=== PATIENT | female | born 1970 | race Asian ===

== ENCOUNTER 2018-07-16 09:35 | Inpatient (IN) | payer OTHER ==
[~2018-07-16] VITALS: Ht 152.4 cm; Wt 57.2 kg
[2018-07-16] MEDS ORDERED: IV NORMAL SALINE 1,000ML 1,000 ML IV SCH (09:56)
--- NOTE | 2018-07-16 10:03 | PHYS DOC ---
Past History Past Medical History: No Pertinent History Past Surgical History: No Surgical History Alcohol Use: Occasionally Drug Use: None Adult General Chief Complaint Chief Complaint: NAUSEA/VOMITING/DIARRHEA HPI HPI Patient is a 48 year old female who presents with complaint of dizziness. Patient states that she has been having frequent dizzy spells for approximately one week. Denies previous history of similar symptoms. States that she has been having these at different times of the day. States that she had her last episode this morning. [place] like she was going to pass out. Notes that she had chest pain associated with her episode this morning. Currently chest pain-free but states that she is having nausea and occasional shortness of breath. Denies any significant past medical history. States that she has been having menstrual periods up until 3 months ago. Expressed concern that she may be but has not taken a test at this time. Denies family history of heart attack. Has not taken any medications for symptoms. Review of Systems Review of Systems Constitutional: Denies fever or chills [] Eyes: Denies change in visual acuity, redness, or eye pain [] HENT: Denies nasal congestion or sore throat [] Respiratory: Denies cough or shortness of breath [] Cardiovascular: Chest pain, denies edema[] GI: Nausea, denies vomiting, abdominal pain, bloody stools or diarrhea [] : Denies dysuria or hematuria [] Musculoskeletal: Denies back pain or joint pain [] Integument: Denies rash or skin lesions [] Neurologic: Dizziness, lightheadedness, denies focal weakness or sensory changes [] All other systems were reviewed and found to be within normal limits, except as documented in this note. Allergies Allergies Allergies Coded Allergies Type Severity Reaction Last Updated Verified No Known Drug Allergies 07/16/18 No Physical Exam Physical Exam Constitutional: Well developed, well nourished, no acute distress, non-toxic appearance. [] HENT: Normocephalic, atraumatic, bilateral external ears normal, oropharynx moist, no oral exudates, nose normal. [] Eyes: PERRLA, EOMI, conjunctiva normal, no discharge. [] Neck: Normal range of motion, no tenderness, supple, no stridor. [] Cardiovascular:Heart rate regular rhythm, no murmur [] Lungs & Thorax: Bilateral breath sounds clear to auscultation [] Abdomen: Bowel sounds normal, soft, no tenderness, no masses, no pulsatile masses. [] Skin: Warm, dry, no erythema, no rash. [] Back: No tenderness, no CVA tenderness. [] Extremities: No tenderness, no cyanosis, no clubbing, ROM intact, no edema. [] Neurologic: Alert and oriented X 3, normal motor function, normal sensory function, no focal deficits noted. [] Current Patient Data Vital Signs Vital Signs Date Time Temp Pulse Resp B/P (MAP) Pulse Ox O2 Delivery O2 Flow Rate FiO2 07/16/18 09:41 98.3 57 18 98 Room Air Lab Results Laboratory Tests Test 07/16/18 10:10 07/16/18 10:15 Urine Collection Type Void Urine Color Yellow Urine Clarity Clear Urine pH 7.0 Urine Specific [place] 1.020 Urine Protein Neg Urine Glucose (UA) Neg mg/dL Urine Ketones (Stick) Neg mg/dL Urine Blood Neg Urine Nitrite Pos Urine Bilirubin Neg Urine Urobilinogen Dipstick 0.2 mg/dL Urine Leukocyte Esterase Neg Urine RBC Occ /HPF Urine WBC Occ /HPF Urine Squamous Epithelial Cells Few /LPF Urine Bacteria Few /HPF Urine Mucus Slight /LPF Urine Test Negative White Blood Count 3.7 x10^3/uL Red Blood Count 4.20 x10^6/uL Hemoglobin 12.7 g/dL Hematocrit 37.9 % Mean Corpuscular Volume 90 fL Mean Corpuscular Hemoglobin 30 pg Mean Corpuscular Hemoglobin Concent 34 g/dL Red Cell Distribution Width 14.0 % Platelet Count 228 x10^3/uL Neutrophils (%) (Auto) 62 % Lymphocytes (%) (Auto) 26 % Monocytes (%) (Auto) 10 % Eosinophils (%) (Auto) 1 % Basophils (%) (Auto) 1 % Neutrophils # (Auto) 2.3 x10^3uL Lymphocytes # (Auto) 1.0 x10^3/uL Monocytes # (Auto) 0.4 x10^3/uL Eosinophils # (Auto) 0.0 x10^3/uL Basophils # (Auto) 0.0 x10^3/uL Sodium Level 143 mmol/L Potassium Level 3.9 mmol/L Chloride Level 107 mmol/L Carbon Dioxide Level 30 mmol/L Anion Gap 6 Blood Urea Nitrogen 13 mg/dL Creatinine 0.7 mg/dL Estimated GFR (Cockcroft-Gault) 88.6 BUN/Creatinine Ratio 19 Glucose Level 86 mg/dL Calcium Level 8.9 mg/dL Magnesium Level 2.0 mg/dL Total Bilirubin 0.3 mg/dL Aspartate Amino Transf (AST/SGOT) 18 U/L Alanine Aminotransferase (ALT/SGPT) 26 U/L Alkaline Phosphatase 48 U/L Creatine Kinase 66 U/L Creatine Kinase MB (Mass) 0.5 ng/mL Creatine Kinase MB Relative Index 0.8 % Troponin I Quantitative < 0.017 ng/mL Total Protein 6.4 g/dL Albumin 3.3 g/dL Albumin/Globulin Ratio 1.1 Current Medications Medications (Trade) Dose Ordered Sig/Willie Route PRN Reason Start Time Stop Time Status Last Admin Dose Admin Aspirin (Children'S Aspirin) 324 mg 1X ONCE PO 07/16/18 10:15 07/16/18 10:16 DC 07/16/18 10:24 Sodium Chloride 1,000 ml @ 1,000 mls/hr Q1H IV 07/16/18 09:56 07/16/18 10:56 DC 07/16/18 10:22 EKG EKG Interpreted by me: Heart rate 59, sinus rhythm, normal intervals, normal axis, no acute ST/T-wave abnormalities present[] Radiology/Procedures Radiology/[place] [address] IMAGING REPORT Signed PATIENT: GARRETT TERRY ACCOUNT: [id number] : 1970 LOCATION: ER AGE: 48 SEX: F EXAM STATUS: REG ER ORD. PHYSICIAN: DARREN HORAN MD REASON: near syncope, chest pain PROCEDURE: PORTABLE CHEST 1V PORTABLE CHEST 1V Clinical indications: Near syncope. Chest pain. COMPARISON: None available. Findings: No acute lung infiltrate or pleural effusion or pulmonary edema or lung mass or pneumothorax is seen. The heart size, pulmonary vasculature, mediastinum and both tom are unremarkable. Impression: No acute radiographic abnormality is seen. Electronically signed by: Carmen Hunter MD (07/16/2018 11:04 AM) [facility] DICTATED AND SIGNED BY: CARMEN HUNTER MD DATE: 07/16/18 1104 CC: DARREN HORAN MD; PCP,UNKNOWN ~ [] Course & Med Decision Making Course & Med Decision Making Pertinent Labs and Imaging studies reviewed. (See chart for details) Patient was given aspirin and IV fluids in the emergency department. Initial lab work is negative. Given recurrent episodes of near syncope and an associated chest pain episode today, the patient is appropriate for admission for continued monitoring and rule out of myocardial infarction. I spoke with Dr. Cazares who accepted care of patient in hospital.[] Dragon Disclaimer Dragon Disclaimer This electronic medical record was generated, in whole or in part, using a voice recognition dictation system. Departure Departure: Impression: Primary Impression: Chest pain Additional Impression: Near syncope Disposition: ADMITTED INPATIENT Admitting Physician: Renetta Cazares Condition: STABLE Referrals: PCP,UNKNOWN (PCP) Problem Qualifiers Primary Impression: Chest pain Chest pain type: unspecified Qualified Codes: R07.9 - Chest pain, unspecified ADRREN HORAN MD July 16, 2018 10:03
[2018-07-16] MEDS ORDERED: ASPIRIN 81 MG TAB.CHEW PO ONE (10:15)
[2018-07-16 10:32] LABS: BASO % 1 % (0-3); EOS % 1 % (0-3); HEMATOCRIT 37.9 % (36.0-47.0); HEMOGLOBIN 12.7 g/dL (12.0-15.5); LYMPH % 26 % (24-48); MEAN CORPUSCULAR HEMOGLOBIN 30 pg (25-35); MEAN CORPUSCULAR HGB CONC 34 g/dL (31-37); MEAN CORPUSCULAR VOLUME 90 fL (79-100); MONO # 0.4 x10^3/uL (0.0-1.1); MONO % 10 % (0-9); NEUT # 2.3 x10^3uL (1.8-7.7); NEUT % 62 % (31-73); PLATELET COUNT 228 x10^3/uL (140-400); WHITE BLOOD COUNT 3.7 x10^3/uL (4.0-11.0)
[2018-07-16 10:41] LABS: U PREG PATIENT NEGATIVE (NEG)
[2018-07-16 10:48] LABS: BILIRUBIN,URINE NEG (NEG); CLARITY,URINE CLEAR; COLOR,URINE YELLOW; GLUCOSE,URINE NEG (NEG)
[2018-07-16 10:49] LABS: BACTERIA,URINE FEW /HPF (0-FEW); NITRITE,URINE POS (NEG); RBC,URINE OCC /HPF (0-2); SQUAMOUS EPITHELIAL CELL,UR FEW /LPF; UROBILINOGEN,URINE 0.2 mg/dL (0.2 mg/dL); WBC,URINE OCC /HPF (0-4)
[2018-07-16 11:03] LABS: ALBUMIN 3.3 g/dL (3.4-5.0); ALBUMIN/GLOBULIN RATIO 1.1 (1.0-1.7); CALCIUM 8.9 mg/dL (8.5-10.1); CREATININE 0.7 mg/dL (0.6-1.0); GFR 88.6; POTASSIUM 3.9 mmol/L (3.5-5.1); TOTAL BILIRUBIN 0.3 mg/dL (0.2-1.0); TOTAL PROTEIN 6.4 g/dL (6.4-8.2)
--- NOTE | 2018-07-16 11:07 | RAD ---
PORTABLE CHEST 1V Clinical indications: Near syncope. Chest pain. COMPARISON: None available. Findings: No acute lung infiltrate or pleural effusion or pulmonary edema or lung mass or pneumothorax is seen. The heart size, pulmonary vasculature, mediastinum and both tom are unremarkable. Impression: No acute radiographic abnormality is seen. Electronically signed by: Seferino Hunter MD (07/16/2018 11:04 AM) [facility]
[2018-07-16] MEDS: IV NORMAL SALINE 1,000ML 1,000 ML IV SCH ×2 (11:12→19:12)
[2018-07-16] MEDS ORDERED: ACETAMINOPHEN 325 MG TABLET PO PRN (11:15)
[2018-07-16] MEDS ORDERED: ONDANSETRON PF 4 MG/2 ML VIAL. IV PRN (11:15)
[2018-07-16 12:23] VITALS: BP 104/67
--- NOTE | 2018-07-16 13:56 | EKG ---
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
[2018-07-16 15:26] VITALS: BP 121/75
--- NOTE | 2018-07-16 16:41 | PDOC2 ---
CARDIAC CONSULT DATE OF CONSULT Date Of Consult DATE: 07/16/18 TIME: 16:07 REASON FOR CONSULT Reason for Consult Chest pain, near syncope REFERRING PHYSICIAN Referring Physician Dr. Allred SOURCE Source: Chart review, Patient HPI History of Present Illness This is a 48 yo female, with no significant medical history, who presented s econdary to intermittent dizziness and nausea/vomiting for the last week. This morning, was significantly more dizzy. [place] as is she could pass out. Had some mild tightness in her left chest. Patient and had concerns that she may be . No SOA, palpitations, diaphoresis, LE edema, or orthopnea. Also reports some intermittent burning with urination. No further chest pain since admission. Of note, is mildly bradycardic with HR near 50. Lowest HR 42. No pauses. Blood pressure also on low end. PAST MEDICAL HISTORY Cardiovascular: No pertinent hx Pulmonary: No pertinent hx GI: No pertinent hx Heme/Onc: No pertinent hx Hepatobiliary: No pertinent hx Psych: No pertinent hx Musculoskeletal: No pertinent hx Rheumatologic: No pertinent hx Infectious disease: No pertinent hx ENT: No pertinent hx Renal/: No pertinent hx Endocrine: No pertinent hx Dermatology: No pertinent hx PAST SURGICAL HISTORY Past Surgical History: FAMILY HISTORY Family History: Hypertension SOCIAL HISTORY Smoke: No ALCOHOL: none Drugs: None Lives: with Family CURRENT MEDICATIONS Current Medications Current Medications Aspirin (Children'S Aspirin) 324 mg 1X ONCE PO Last administered on 07/16/18at 10:24; Start 07/16/18 at 10:15; Stop 07/16/18 at 10:16; Status DC Sodium Chloride 1,000 ml @ 1,000 mls/hr Q1H IV Last administered on 07/16/18at 10:22; Start 07/16/18 at 09:56; Stop 07/16/18 at 10:56; Status DC Ondansetron HCl (Zofran) 4 mg PRN Q4HRS PRN IV NAUSEA/VOMITING; Start 07/16/18 at 11:15; Stop 07/17/18 at 11:14 Sodium Chloride 1,000 ml @ 125 mls/hr Q8H IV ; Start 07/16/18 at 11:12; Stop 07/17/18 at 11:11 Acetaminophen (Tylenol) 650 mg PRN Q4HRS PRN PO FEVER; Start 07/16/18 at 11:15; Stop 07/17/18 at 11:14 ALLERGIES Allergies: Coded Allergies: No Known Drug Allergies (Unverified , 07/16/18) ROS Review of Systems 14 point ROS conducted with pertinent positives noted above in HPI. PHYSICAL EXAM General: Alert, Oriented X3, Cooperative, No acute distress HEENT: Atraumatic Lungs: Clear to auscultation, Normal air movement Heart: Regular rate, Normal S1, Normal S2 Abdomen: Soft, No tenderness Extremities: No edema, Normal pulses Skin: No breakdown Neuro: Normal speech, Sensation intact Psych/Mental Status: Mental status NL, Mood NL MUSCULOSKELETAL: Osteoarthritic changes both hands VITALS Vital Signs Vital Signs Date Time Temp Pulse Resp B/P (MAP) Pulse Ox O2 Delivery O2 Flow Rate FiO2 07/16/18 15:26 98.3 50 16 121/75 (90) 99 Room Air LABS LABS Laboratory Tests Test 07/16/18 10:10 07/16/18 10:15 07/16/18 14:25 Urine Collection Type Void Urine Color Yellow Urine Clarity Clear Urine pH 7.0 Urine Specific [place] 1.020 Urine Protein Neg (NEG-TRACE) Urine Glucose (UA) Neg mg/dL (NEG) Urine Ketones (Stick) Neg mg/dL (NEG) Urine Blood Neg (NEG) Urine Nitrite Pos (NEG) Urine Bilirubin Neg (NEG) Urine Urobilinogen Dipstick 0.2 mg/dL (0.2 mg/dL) Urine Leukocyte Esterase Neg (NEG) Urine RBC Occ /HPF (0-2) Urine WBC Occ /HPF (0-4) Urine Squamous Epithelial Cells Few /LPF Urine Bacteria Few /HPF (0-FEW) Urine Mucus Slight /LPF Urine Test Negative (NEG) White Blood Count 3.7 x10^3/uL (4.0-11.0) Red Blood Count 4.20 x10^6/uL (3.50-5.40) Hemoglobin 12.7 g/dL (12.0-15.5) Hematocrit 37.9 % (36.0-47.0) Mean Corpuscular Volume 90 fL (79-100) Mean Corpuscular Hemoglobin 30 pg (25-35) Mean Corpuscular Hemoglobin Concent 34 g/dL (31-37) Red Cell Distribution Width 14.0 % (11.5-14.5) Platelet Count 228 x10^3/uL (140-400) Neutrophils (%) (Auto) 62 % (31-73) Lymphocytes (%) (Auto) 26 % (24-48) Monocytes (%) (Auto) 10 % (0-9) Eosinophils (%) (Auto) 1 % (0-3) Basophils (%) (Auto) 1 % (0-3) Neutrophils # (Auto) 2.3 x10^3uL (1.8-7.7) Lymphocytes # (Auto) 1.0 x10^3/uL (1.0-4.8) Monocytes # (Auto) 0.4 x10^3/uL (0.0-1.1) Eosinophils # (Auto) 0.0 x10^3/uL (0.0-0.7) Basophils # (Auto) 0.0 x10^3/uL (0.0-0.2) Sodium Level 143 mmol/L (136-145) Potassium Level 3.9 mmol/L (3.5-5.1) Chloride Level 107 mmol/L (98-107) Carbon Dioxide Level 30 mmol/L (21-32) Anion Gap 6 (6-14) Blood Urea Nitrogen 13 mg/dL (7-20) Creatinine 0.7 mg/dL (0.6-1.0) Estimated GFR (Cockcroft-Gault) 88.6 BUN/Creatinine Ratio 19 (6-20) Glucose Level 86 mg/dL (70-99) Calcium Level 8.9 mg/dL (8.5-10.1) Magnesium Level 2.0 mg/dL (1.8-2.4) Total Bilirubin 0.3 mg/dL (0.2-1.0) Aspartate Amino Transf (AST/SGOT) 18 U/L (15-37) Alanine Aminotransferase (ALT/SGPT) 26 U/L (14-59) Alkaline Phosphatase 48 U/L (46-116) Creatine Kinase 66 U/L (26-192) Creatine Kinase MB (Mass) 0.5 ng/mL (0.0-3.6) Creatine Kinase MB Relative Index 0.8 % (0-4) Troponin I Quantitative < 0.017 ng/mL (0-0.055) < 0.017 ng/mL (0-0.055) Total Protein 6.4 g/dL (6.4-8.2) Albumin 3.3 g/dL (3.4-5.0) Albumin/Globulin Ratio 1.1 (1.0-1.7) ASSESSMENT/PLAN Assessment/Plan 1. Dizziness. Blood pressure initially on low end, but improved with IVFs 2. Nausea/vomiting, intermittent last week. 3. Chest pain, atypical. AMI ruled out 4. Sinus bradycardia; lowest 42. No pauses. Appropriate chronotropic response. No carotid hypersensitivity 5. Dysuria Recommendations Echo to assess LV systolic function Lipid panel, TSH Avoid AV tiffany blocking agents Monitor rhythm overnight. Consider outpatient event monitor to r/o significant bradycardia/pauses ANNALISE HUGO APRN July 16, 2018 16:41
--- NOTE | 2018-07-16 18:55 | HP ---
ADMIT DATE: 07/16/2018 HISTORY OF PRESENT ILLNESS: The patient is a 48-year-old female patient, who came to the Emergency Room with a complaint of chest pain and near syncope. According to her has had intermittent episode of dizziness with nausea and vomiting for the last week and this morning was significantly more dizzy, felt as if she could pass out and some mild tightness in her left chest. The patient and had concerned that she may be . Denied any shortness of breath, palpitations, diaphoresis. She did also complain of intermittent burning with urination. Her said that also her blood pressure was low when he measured it at home had about 90/60. She has also bradycardia raising the concern that she might have episodes of high grade heart block. The patient was admitted and investigation showed that she was in sinus bradycardia with normal intervals, normal axis, and no acute ST-T changes. Her first set of cardiac enzymes showed troponin to be less than 0.017. The patient was admitted to do 2 more sets of cardiac enzyme, consult the degreasing solution reclaimer. Her urine was positive for nitrite, but negative for leukocyte esterase. There are no rbc's, no wbc's and very few bacteria; however, the patient was treated with IV antibiotic for presumably presumptive UTI and was admitted. PAST MEDICAL HISTORY: Essentially unremarkable. PAST SURGICAL HISTORY: Significant for . FAMILY HISTORY: Positive for hypertension. SOCIAL HISTORY: She is , has 1 son. She does not smoke, drink alcohol or use any recreational drugs. REVIEW OF SYSTEMS: As per history of present illness. ALLERGIES: She has no known drug allergies. MEDICATIONS: She is on no medication. PHYSICAL EXAMINATION: GENERAL: On arrival to the Emergency Room, she looked well and was clearly in no apparent respiratory distress. There was no pallor, jaundice, cyanosis, or thyromegaly. No jugular venous distension. No limb edema. VITAL SIGNS: Her heart rate was 57, blood pressure was 103/53, temperature was 98.3, respiratory rate was 18 and oxygen saturation was 98%. HEAD, EYES, EARS, NOSE, AND THROAT: Showed normocephalic, atraumatic. NECK: Supple. HEART: Showed normal first and second heart sounds with no gallop, rub or murmur. CHEST: Clear to auscultation. No crepitation or rhonchi. ABDOMEN: Distended, soft, nontender. No guarding rigidity, organomegaly. All hernial orifice intact. Bowel sounds normal. NEUROLOGIC: She is awake, alert, responding appropriately. All cranial nerves intact. EXTREMITIES: She moves extremities without difficulty. She ambulates without assistance or assistive devices. LABORATORY DATA: Showed a white cell count of 3700, hemoglobin 12.7, hematocrit 37.9, MCV 90 and platelet count 228,000. Serum sodium was 143, potassium 3.9, chloride 107, bicarbonate 30, anion gap of 6, BUN 13, creatinine 0.7, estimated GFR was 88 mL per minute. Her glucose was 86, calcium was 8.9, magnesium 2. Total bilirubin, AST, ALT, alkaline phosphatase were normal. Her first troponin was less than 0.017. Total protein was 6.4, albumin was 3.3. Her chest x-ray showed that no acute lung infiltrate, pleural effusion, pulmonary edema or lung mass or pneumothorax seen. The heart size, pulmonary vasculature, mediastinum and both tom are unremarkable. PLAN: The patient was admitted to do 2 more sets of cardiac enzyme, consult the cardiology team. We will also check her fasting lipid profile and decide on further management accordingly. REYNA MARIA MD DR: IRVING/shanita JOB#: [id number] / [id number]
[2018-07-16 19:36] VITALS: BP 112/69
[2018-07-16 22:12] VITALS: BP 112/71
[2018-07-17] MEDS: IV NORMAL SALINE 1,000ML 1,000 ML IV SCH (03:12)
[2018-07-17 05:22] VITALS: BP 104/62
[2018-07-17 06:34] LABS: BASO % 1 % (0-3); EOS # 0.1 x10^3/uL (0.0-0.7); EOS % 2 % (0-3); HEMATOCRIT 38.9 % (36.0-47.0); LYMPH # 1.2 x10^3/uL (1.0-4.8); LYMPH % 32 % (24-48); MEAN CORPUSCULAR HEMOGLOBIN 30 pg (25-35); MEAN CORPUSCULAR HGB CONC 34 g/dL (31-37); MEAN CORPUSCULAR VOLUME 91 fL (79-100); MONO # 0.3 x10^3/uL (0.0-1.1); MONO % 9 % (0-9); NEUT # 2.1 x10^3uL (1.8-7.7); NEUT % 57 % (31-73); PLATELET COUNT 221 x10^3/uL (140-400); RED BLOOD COUNT 4.29 x10^6/uL (3.50-5.40); RED CELL DISTRIBUTION WIDTH 14.1 % (11.5-14.5); WHITE BLOOD COUNT 3.7 x10^3/uL (4.0-11.0)
[2018-07-17 06:36] LABS: CALCIUM 8.8 mg/dL (8.5-10.1); CREATININE 0.5 mg/dL (0.6-1.0); GFR 130.6; POTASSIUM 3.8 mmol/L (3.5-5.1)
[2018-07-17 11:13] VITALS: BP 116/71
[2018-07-17] MEDS ORDERED: CEFD300C PO (13:28)
--- NOTE | 2018-07-17 14:26 | DS ---
DATE OF DISCHARGE: 07/17/2018 HOSPITAL COURSE: The patient is a 48-year-old female patient who came to the Emergency Room complaining of intermittent dizziness, nausea, vomiting. She was more dizzy on the admission morning, she could pass out. Her blood pressure was low, according to her . She also has bradycardia with heart rate down to 42. She was evaluated in the Emergency Room, has had 3 sets of cardiac enzyme, has ruled out myocardial infarction. She had some urinalysis showed that she was positive for nitrites and there are few bacteria and she was treated with IV ceftriaxone; however, throughout her hospital stay her heart rate seems to be on the lower side. She has sinus bradycardia with heart rate in the 50s. Her blood pressure is stable, on the lower side around 100-110 mmHg. The patient is asymptomatic, has no further episodes of syncope or dizziness and a decision was made to discharge her home with a plan to do an outpatient heart monitoring. The patient and her were encouraged to make an appointment with her primary care physician at [facility] so that she can be referred to our drum barker operator for further evaluation and treatment. PHYSICAL EXAMINATION: GENERAL: When I saw her today, she looked well and was clearly in no apparent respiratory distress. No pallor, jaundice, cyanosis, or thyromegaly. No jugular venous distension. No lower limb edema. VITAL SIGNS: Her heart rate was 51, blood pressure was 116/71, temperature was 98.1, respiratory rate was 20 and oxygen saturation was 98%. HEENT: Examination of the head, eyes, ears, nose and throat showed normocephalic, atraumatic. NECK: Supple. HEART: Showed normal first and second heart sounds. No gallop, rub or murmur. CHEST: Clear to auscultation. No crepitation or rhonchi. ABDOMEN: Distended, soft, nontender. No guarding or rigidity. No organomegaly. Her hernial orifices are intact. Bowel sounds normal. NEUROLOGIC: She was awake, alert, responding appropriately. All her cranial nerves are intact. EXTREMITIES: She moves extremities without difficulty. She ambulates without assistance or assistive devices. LABORATORY DATA: Her lab work this morning showed a white cell count of 3700, hemoglobin 13, hematocrit 39, MCV 91 and platelet count 221,000. Her chemistry this morning showed a serum sodium 141, potassium 3.8, chloride 106, bicarbonate 27, anion gap of 8, BUN 11, creatinine was 0.5, estimated GFR was 130 mL per minute. Her glucose was 82, calcium was 8.6. As I stated, she has 3 sets of cardiac enzymes that were all negative. DISCHARGE MEDICATIONS: The patient was discharged on cefdinir 300 mg twice a day for 3 more days. FINAL DISCHARGE DIAGNOSES: Near syncope, persistent sinus bradycardia and urinary tract infection. REYNA MARIA MD DR: IRVING/shanita JOB#: [id number] / [id number]
[2018-07-17 20:51] LABS: THYROID STIM HORMONE (TSH) 1.616 uIU/mL (0.358-3.740)
--- NOTE | 2018-07-21 10:55 | CARD ---
MR#: [id number] Date of Study: 07/17/2018 Ordering Physician: ANNALISE HUGO, Referring Physician: REYNA MARIA, Tech: Joleen Bragg APPROVED REPORT EXAM: Two-dimensional and M-mode echocardiogram with Doppler and color Doppler. Other Information Quality : GoodHR: 56bpm Rhythm : NSR INDICATION Chest Pain 2D DIMENSIONS RVDd3.1 (2.9-3.5cm)Left Atrium(2D)2.9 (1.6-4.0cm) IVSd0.9 (0.7-1.1cm)Aortic Root(2D)2.8 (2.0-3.7cm) LVDd4.1 (3.9-5.9cm)LVOT Diameter2.1 (1.8-2.4cm) PWd0.9 (0.7-1.1cm)LVDs2.9 (2.5-4.0cm) FS (%) 30.7 %SV44.0 ml LVEF(%)58.6 (>50%) Aortic Valve AoV Peak Darrian.122.1cm/sAoV VTI27.6cm AO Peak GR.7.6mmHgLVOT Peak Darrian.98.7cm/s LVOT VTI 21.86cmAO Mean GR.3mmHg KOLBY (VMAX)2.29zp3EJX (VTI)2.69cm2 Mitral Valve MV E Rmajdctj21.1cm/sMV DECEL [id number] MV A Ukbpfzyu36.2cm/sE/A Ratio1.3 Pulmonary Valve PV Peak Rqxoicqj33.0cm/sPV Peak Grad.4mmHg Tricuspid Valve TR P. Blxhegyn823ep/sRAP HJELUMEZ2hvIi TR Peak Gr.80lpAtBYQX84exQd Pulmonary Vein S1 Cegnfsao36.5cm/sD2 Cpztskap87.9cm/s LEFT VENTRICLE The left ventricle is normal size. There is normal left ventricular wall thickness. The left ventricu lar systolic function is normal and the ejection fraction is within normal range. The Ejection Fracti on is 50-55%. There is normal LV segmental wall motion. The left ventricular diastolic function and f illing is normal for age. RIGHT VENTRICLE The right ventricle is normal size. There is normal right ventricular wall thickness. The right ventr icular systolic function is normal. ATRIA The left atrium size is normal. The right atrium size is normal. The interatrial septum is intact wit h no evidence for an atrial septal defect or patent foramen ovale as noted on 2-D or Doppler imaging. AORTIC VALVE The aortic valve is normal in structure and function. Doppler and Color Flow revealed trace aortic re gurgitation. There is no significant aortic valvular stenosis. MITRAL VALVE The mitral valve is mildly thickened. There is no evidence of mitral valve prolapse. There is no mitr al valve stenosis. Doppler and Color-flow revealed trace mitral regurgitation. TRICUSPID VALVE The tricuspid valve is normal in structure and function. Doppler and Color Flow revealed trace tricus pid regurgitation. There is no tricuspid valve stenosis. PULMONIC VALVE The pulmonary valve is normal in structure and function. Doppler and Color Flow revealed no pulmonic valvular regurgitation. GREAT VESSELS The aortic root is normal in size. The IVC is normal in size and collapses >50% with inspiration. PERICARDIAL EFFUSION There is no evidence of significant pericardial effusion. Critical Notification Critical Value: No <Conclusion> The left ventricle is normal size. The left ventricular systolic function is normal and the ejection fraction is within normal range. The Ejection Fraction is 50-55%. There is no significant aortic valvular stenosis. Doppler and Color Flow revealed trace aortic regurgitation. The mitral valve is mildly thickened. Doppler and Color-flow revealed trace mitral regurgitation. There is no mitral valve stenosis. Doppler and Color Flow revealed trace tricuspid regurgitation. Signed by : Alex Burnham MD Electronically Approved : 07/17/2018 11:27:32
== END 2018-07-17 13:20 | disposition home or self-care (01) | DRG 690 ==
LOC: ER 09:35 → 1 SOUTH 11:41
PROVIDERS: ADMIT Internal Medicine; ATTEND Internal Medicine
DX: N39.0 Urinary tract infection, site not specified (principal); R55 Syncope and collapse; Z82.49 Family history of ischemic heart disease and other diseases of the circulatory system; R11.2 Nausea with vomiting, unspecified; R00.1 Bradycardia, unspecified; R07.89 Other chest pain
CPT/HCPCS: 36415; 71045; 80048; 80053; 80061; 81001; 81025; 82553; 83735; 84443; 84484; 85025; 87086; 93005; 93306; 96360; 99285-25; J7030

== ENCOUNTER → 2019-03-02 | Day surgery (SDC) | payer OTHER ==
[~2019-03-02] MED LIST: ACET325T9 PO; CEFD300C PO; CYCL5TAB PO; IV RINGERS SOLUTION,LACTATED 1,000 ML IV SCH; PROPOFOL 10,000 MCG/ML (20ML) VIAL IV ONE; PROPOFOL 40 ML IV ONE
[2019-03-02 11:00] VITALS: BP 118/68
--- NOTE | 2019-03-03 15:09 | PATHOLOGY ---
[facility] Accession Number: [id number] . 01 Material submitted: . rectum - RECTAL POLYP . 01 Clinical history: . Colonoscopy . 02 Diagnosis: Colorectal biopsy, rectal polyp: - Tubular adenoma. LBQ 03/03/2019 0941 Local . 02 Comment: There is no high grade dysplasia or evidence of malignancy. (JPM/db; 03/03/2019) . 02 Electronically signed: . Davion Henao MD, Pathologist NPI- [id number] . 01 Gross description: . Received in formalin labeled "I[place], Yoojeong, rectal polyp," is a 0.8 x 0.5 x 0.5 cm polypoid piece of leo soft tissue. The margin is inked and the tissue is sectioned perpendicular to the margin and submitted entirely in cassette A1. (TSD; 03/02/2019) TOB/TOB 03/02/2019 2215 Local . 02 Pathologist provided ICD-10: D12.8 . 02 CPT . 222682 Specimen Comment: A courtesy copy of this report has been sent to [phone] Specimen Comment: Report sent to Performed at: 01 [facility] [address], [place] [id number] MD Alvaro Long MD Phone: [phone] Performed at: 02 [facility] [address] [place], [place] [id number] MD Davion Henao MD Phone: [phone]
== END | disposition home or self-care (01) ==
LOC: SURG 08:27
PROVIDERS: ATTEND Internal Medicine Gastroenterology
DX: Z12.11 Encounter for screening for malignant neoplasm of colon (principal); D12.8 Benign neoplasm of rectum; K63.89 Other specified diseases of intestine; K57.30 Diverticulosis of large intestine without perforation or abscess without bleeding; Z79.899 Other long term (current) drug therapy
CPT/HCPCS: 45385; 88305; J2704; J7120